=== PATIENT | female | born 1980 | race Caucasian/White ===

== ENCOUNTER 2022-12-04 16:20 | Outpatient (AMB) | payer OTHER, SELFPAY ==
[2022-12-04 16:21] VITALS: BP 112/76; PULSE 79; O2SAT 97; BMI 32.1
--- NOTE | 2022-12-04 16:21 | A.OFFPC_ITS ---
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: No Accompanied by: Self / Same As Patient Allergies No Known Allergies Allergy (Verified 12/04/22 16:58) Medication List - Last Reconciled 12/04/22 by Bry Kiran MD levothyroxine 112 mcg PO DAILY 90 days naproxen sodium (Aleve) 220 mg PO BID PRN norethindrone-e.estradiol-iron 1 mg-20 mcg ()/75 mg (7) (03/23 ()) 1 tab PO DAILY omeprazole 20 mg PO DAILY Tobacco use date assessed: 12/04/22 Dental Screening Dental Screen Date: 12/04/22 Did you have a dental visit in the last 12 months?: Yes Did you have a dental problem in the last 6 months where you did not have access to dental care?: No Was dental information given to patient?: Patient has dentist HPI PE HPI Details Patient comes in today for her annual physical examination States that she has been experiencing increased fatigue often lately Has also been experiencing an overall sense of achiness all over recently and is not sure what is going on Is thinking about getting tested for Lyme disease since we live in an area endemic for the tick-borne disease but is not sure if she needs to or she should Adds that she had COVID (again) a few weeks ago in October 2022 - relates that she was having some wheezing back then when she breathes and was feeling s omewhat tired but states that most of her symptoms then were similar to what one would have with a cold and that most of her symptoms now, aside from the fatigue, have all cleared up She also has gained a lot of weight since her visit last year - has gained approximately 21 pounds since then States that she is now in menopause and has been experiencing a lot of hot flashes frequently and has not really had any motivation to do any exercise or work outs for the past few months She denies any headaches or dizziness Denies any chest pains, no SOB No nausea/vomiting, no abdominal pain States that she was experiencing some recurrent heartburns over the past few months - was initially taking some OTC Famotidine until it stopped working States that she then switched over to OTC Prilosec and that this has been helping a lot - takes this only PRN at this time No change in bowel habits noted Denies any acute urinary symptoms Had her mammogram done back in August 2022 and 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 - both were negative Will also be needing her Levothyroxine Rx refilled if she is to continue on her same dose PFSH Medical History (Updated 12/04/22 @ 18:06 by Bry Kiran MD) Obesity (BMI 30-39.9) Vitamin D deficiency Overweight (BMI 25.0-29.9) GERD without esophagitis Multinodular goiter Acquired hypothyroidism IBS (irritable bowel syndrome) Surgical History H/O shoulder surgery History of removal of skin mole Family History Father Hypertension Mother Hypertension Diabetes Social History Housing: House Alcohol intake: current Alcohol intake frequency: a few times a week Patient Tobacco Use Status: Former Tobacco user Second Hand Smoke Exposure: Yes service: No Current occupational status: employed Cognitive needs: No Hearing needs: No Vision needs: Yes Female Reproductive History Menstrual Age of Menarche: 10 Date of last menstrual period: 07/15/21 Menopause type: natural Questionnaire PHQ-9 Over the last 2 weeks, how often have you been bothered by any of the following problems? 1. Little interest or pleasure in doing things: not at all 2. Feeling down, depressed, or hopeless: not at all 3. Trouble falling or staying asleep, or sleeping too much: not at all 4. Feeling tired or having little energy: not at all 5. Poor appetite or overeating: not at all 6. Feeling bad about yourself - or that you are a failure or have let yourself or your family down: not at all 7. Trouble concentrating on things, such as reading the newspaper or watching television: not at all 8. Moving or speaking so slowly that other people could have noticed. Or the opposite - being so fidgety or restless that you have been moving around a lot more than usual: not at all 9. Thoughts that you would be better off or of hurting yourself in some way: not at all Total score: 0 Depression Screening Interpretation: Negative Depression Screening Done: Yes 95451 - PHQ-9 Billing: Yes Source: Developed by Drs. Valerio David, Emmanuelle Shrestha, Pedro Wesley and colleagues, with an educational lubna from [employer]. Thrive Questionnaire Date Thrive assessed: 12/04/22 I am a: Patient What is your living situation today?: I have a steady place to live Within the past 12 months, did the food you bought not last and you didn't have the money to get more?: Never true Within the past 12 months, did you worry whether your food would run out before you got money to buy more?: Never true Do you have trouble paying for medicines?: No Do you have trouble getting transportation to medical appointments?: No Do you have trouble paying your heating and electricity bill?: No Do you have trouble taking care of your child, family member or friend?: No Do you have trouble with day-to-day activities such as bathing, preparing meals, shopping, managing finances, etc.?: No Are you currently unemployed and looking for a job?: No Are you interested in more education?: No Please select the resources that you would like help with: None Currently or been in a relationship where the following occur: no concerns reported AUDIT C Alcohol Use Questionnaire (AUDIT-C) 1. How often do you have a drink containing alcohol?: 2-3 times a week 2. How many drinks containing alcohol do you have on a typical day when you are drinking?: 1 or 2 3. How often do you have six or more drinks on one occasion?: Never Total Score: 3 Score Reviewed/Action Taken: Yes JERE-7 AMB Questionnaire JERE-7 Date JERE - 7 assessed: 12/04/22 Feeling nervous, anxious, or on edge: 0 = Not at all Not being able to stop or control worryin = Not at all Worrying too much about different things: 0 = Not at all Trouble relaxin = Not at all Being so restless that it is hard to sit still: 0 = Not at all Becoming easily annoyed or irritable: 0 = Not at all Feeling afraid as if something awful might happen: 0 = Not at all Total JERE-7 score (0-4 normal; 5-9 mild; 10-14 moderate; 15-21 severe): 0 Source: Developed by Drs. Valerio David, Emmanuelle Shrestha, Pedro Wesley and colleagues, with an educational lubna from [employer]. Review of Systems Const Denies chills, Reports fatigue, Denies fever(s), Denies headache(s), Reports lethargy (at times), Denies malaise and Reports weight gain Eyes Denies blurry vision, Denies change in vision, Denies irritation and Denies itchy eyes ENT Denies dysphagia, Denies dizziness, Denies otalgia, Denies headache(s), Denies nasal congestion, Denies neck pain, Denies odynophagia, Denies sinus pain and Denies sore throat Card Denies chest pain, Denies rapid heart rate, Denies irregular heart rhythm, Denies palpitations and Denies dyspnea Resp Denies chest congestion, Denies cough, Denies dyspnea and Denies wheezing GI Denies abdominal pain, Denies bloating, Denies constipation, Denies dysphagia, Denies heartburn, Denies diarrhea, Denies nausea, Denies odynophagia and Denies vomiting Denies hematuria, Denies urinary frequency, Reports hot flashes (frequent), Denies dysuria, Denies urinary incontinence and Denies urinary urgency Musc Denies back pain, Reports myalgias (on and off), Denies arthralgias, Denies joint swelling, Denies muscle weakness and Denies neck pain Skin/Breast Denies breast pain, Denies breast mass, Denies change in pigmentation, Denies lesions, Denies rash and Denies unusual bruising Neuro Denies dizziness, Denies headache(s) and Denies paresthesias Psych Denies anxiety and Denies depression Endo Reports fatigue and Denies palpitations Chucho/Lymph Denies easy bruising Aller/Immun Denies itchy eyes and Denies wheezing Physical exam (Primary Care) Vital Signs: Last Vital Signs Pulse 79 12/04/22 16:21 BP 112/76 12/04/22 16:21 Pulse Ox 97 12/04/22 16:21 Oxygen Delivery Method Room Air 12/04/22 16:21 BMI result Body Mass Index 32.1 Tobacco/Smoking Status: Tobacco use Status Tobacco use date assessed 12/04/22 12/04/22 16:26 Patient Tobacco Use Status Former Tobacco user 12/04/22 16:26 PHQ-9: PHQ-9 Score PHQ-9: Total score 0 12/04/22 16:29 Depression Screening Interpretation: Negative Thrive Assessment: Date of Thrive Assessment Date Thrive assessed 12/04/22 12/04/22 16:26 Currently or been in a relationship where the following occur: no concerns reported Const General: no acute distress, alert and awake Orientation/consciousness: patient oriented x3 HENMT Head: Yes normocephalic and Yes atraumatic Ears: external ears normal, TM's normal bilaterally and EAC's normal General nose exam: No nasal discharge present Face and sinus: Yes normal facial exam and Yes sinuses nontender Teeth and gingiva: dentition normal Throat: Yes posterior oropharynx normal and Yes tonsils normal (no TP congestion) Eyes Eyelids: Yes eyelids normal Conjunctivae: conjunctivae normal Pupils: Equal, round and reactive pupils present EOM: EOMs intact bilaterally Neck Neck: Yes no lymphadenopathy and Yes supple Thyroid: Thyroid normal Resp Auscultation: clear to auscultation bilaterally, no rales and no wheezes Cardio Rate: regular rate Rhythm: regular rhythm Heart sounds: no murmurs GI Palpation (GI): Soft to palpation, nontender and No hepatosplenomegaly present Auscultation: normal bowel sounds General: Yes no CVA tenderness Back/Spine/Pelvis Back: no CVA tenderness Thoracic/Lumbar Spine: thoracic and lumbar spine normal to inspection Skin Lesions: no lesions Rashes: no rashes Neuro General: patient oriented x3, moves all extremities, no focal motor deficits and CN's II-XI intact bilaterally Cranial nerves: Yes Equal, round and reactive pupils present Cognition (Neuro): normal cognition Gait exam (Neuro): Normal gait present Extrem General: Yes no clubbing, cyanosis or edema Office Procedures Flu Questionnaire Does the patient have a severe egg allergy?: No Immunizations flu vacc [id number] 6mos up(PF) 60 mcg(15 mcgx4)/0.5 mL IM syringe Performing Provider: Bry Kiran MD Performing Location: [facility] Documented (not given) by: Katty Jones on 12/04/22 16:29 Reason Not Given: Patient Refused Assessment and Plan Assessment & Plan (1) Annual physical exam: Code(s): Z00.00 - Encounter for general adult medical examination without abnormal findings Plan: Check labs Patient is up-to-date with her cancer screenings (pap smear and mammogram) (2) Acquired hypothyroidism: Code(s): E03.9 - Hypothyroidism, unspecified Plan: Continue Levothyroxine 112 mcg QD Will recheck her TFTs for follow up (3) Multinodular goiter: Code(s): E04.2 - Nontoxic multinodular goiter Plan: Follow up with endocrinology as scheduled Continue with yearly US for surveillance (4) GERD without esophagitis: Code(s): K21.9 - Gastro-esophageal reflux disease without esophagitis Plan: Dietary restrictions reinforced Continue OTC Omeprazole 20 mg QD PRN; used to take Famotidine but states that they were not helping as much lately so she switched over to Omeprazole instead (5) History of irritable bowel syndrome: Code(s): Z87.19 - Personal history of other diseases of the digestive system Plan: Follow up with GI as scheduled (6) Fatigue: Code(s): R53.83 - Other fatigue Qualifiers: Fatigue type: unspecified Qualified Code(s): R53.83 - Other fatigue Plan: Per request, will send her for a Lyme disease titer for further evaluation Will also recheck her CBC and TFTs, which may also potentially help explain her increased fatigue lately (7) Vitamin D deficiency: Code(s): E55.9 - Vitamin D deficiency, unspecified Plan: Advised that her Vitamin D level was low on her labs last year and she should start taking OTC Vitamin D3 2000 units QD (8) Right ankle pain: Code(s): M25.571 - Pain in right ankle and joints of right foot Qualifiers: Chronicity: unspecified Qualified Code(s): M25.571 - Pain in right ankle and joints of right foot Plan: Patient reports (+) Hx of ankle tendinosis Continue Naproxen 220 mg BID PRN Follow up with orthopedics at [facility] as scheduled or as needed (9) Obesity (BMI 30-39.9): Code(s): E66.9 - Obesity, unspecified Plan: Reinforced diet/exercise as tolerated/lose weight - she has gained over 20 pounds since her last visit a year ago Plan To return in 1 year for her next annual physical examination Orders: Orders Comprehensive Lititz. Panel Fast Today E78.00 - Pure hypercholesterolemia, unspecified, Z00.00 - Encounter for general adult medical examination without abnormal findings Lyme IgG/IgM w/reflex to WB Today R53.83 - Other fatigue, W57.XXXA - Bitten or stung by nonvenomous insect and other nonvenomous arthropods, initial encounter, Z00.00 - Encounter for general adult medical examination without abnormal findings UA CC w/rflx Micro + Cult Today R30.0 - Dysuria, Z00.00 - Encounter for general adult medical examination without abnormal findings Vitamin D 25-OH Total Today E55.9 - Vitamin D deficiency, unspecified, Z00.00 - Encounter for general adult medical examination without abnormal findings Hemoglobin A1c Today R73.01 - Impaired fasting glucose, Z00.00 - Encounter for general adult medical examination without abnormal findings Influenza [id number] Immunization Today Z23 - Encounter for immunization Complete Blood Count Auto Diff Today R53.83 - Other fatigue, Z00.00 - Encounter for general adult medical examination without abnormal findings Thyroid Stimulating Hormone Today E03.9 - Hypothyroidism, unspecified, Z00.00 - Encounter for general adult medical examination without abnormal findings Free T4 (Free Thyroxine) Today E03.9 - Hypothyroidism, unspecified, Z00.00 - Encounter for general adult medical examination without abnormal findings Lipid Panel Today E78.00 - Pure hypercholesterolemia, unspecified, Z00.00 - Encounter for general adult medical examination without abnormal findings Medications: Refilled levothyroxine 112 mcg PO DAILY 90 days 90 caps 3RF Coding Level of Care Code Est Pt Prev Care 40-64y(62376) Diagnoses Annual physical exam Z00.00 Acquired hypothyroidism E03.9 Multinodular goiter E04.2 GERD without esophagitis K21.9 History of irritable bowel syndrome Z87.19 Fatigue, unspecified type R53.83 Fatigue type: unspecified Vitamin D deficiency E55.9 Right ankle pain, unspecified chronicity M25.571 Chronicity: unspecified Obesity (BMI 30-39.9) E66.9
== END 2022-12-04 17:20 | disposition home or self-care (01) ==
PROVIDERS: PCP Internal Medicine; Visit Provider Internal Medicine
DX: Z00.00 Encounter for general adult medical examination without abnormal findings (principal); E03.9 Hypothyroidism, unspecified; E04.2 Nontoxic multinodular goiter; K21.9 Gastro-esophageal reflux disease without esophagitis; Z87.19 Personal history of other diseases of the digestive system; R53.83 Other fatigue; E55.9 Vitamin D deficiency, unspecified; M25.571 Pain in right ankle and joints of right foot; E66.9 Obesity, unspecified
CPT/HCPCS: 99396

== ENCOUNTER 2023-12-17 17:00 | Outpatient (AMB) | payer OTHER, SELFPAY ==
--- NOTE | 2023-12-17 17:06 | MHC.PC.OV ---
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: No Accompanied by: Self / Same As Patient Allergies No Known Allergies Allergy (Verified 12/17/23 19:08) Medication List - Last Reconciled 12/17/23 by Bry Kiran MD levothyroxine 112 mcg PO DAILY 90 days naproxen sodium (Aleve) 220 mg PO BID PRN norethindrone-e.estradiol-iron 1 mg-20 mcg (21)/75 mg (7) (03/23 ()) 1 tab PO DAILY omeprazole 20 mg PO DAILY Tobacco use date assessed: 12/17/23 Dental Screening Dental Screen Date: 12/17/23 Did you have a dental visit in the last 12 months?: Yes Did you have a dental problem in the last 6 months where you did not have access to dental care?: No Was dental information given to patient?: Patient has dentist HPI pe HPI Details Patient comes in today for her annual physical examination States that she feels okay She denies any headaches or dizziness Denies any chest pains, no SOB No nausea/vomiting, no abdominal pain No change in bowel habits noted Denies any acute urinary symptoms She is past due for her annual mammogram but is up-to-date with her annual gynecology exam and pap smear She is also due for her colon cancer screening She is requesting for a referral to ENT as well - states that she's had a deviated nasal septum for years and has chronic nasal congestion as a result and would now like to have this addressed [facility] Medical History Obesity (BMI 30-39.9) Vitamin D deficiency Overweight (BMI 25.0-29.9) GERD without esophagitis Multinodular goiter Acquired hypothyroidism IBS (irritable bowel syndrome) Surgical History H/O shoulder surgery History of removal of skin mole Family History Father Hypertension Mother Hypertension Diabetes Social History Housing: House Alcohol intake: current Alcohol intake frequency: a few times a week Patient Tobacco Use Status: Former Tobacco user e-Cigarette/Vaping Use: Never Used Second Hand Smoke Exposure: Yes service: No Current occupational status: employed Cognitive needs: No Hearing needs: No Vision needs: Yes Female Reproductive History Menstrual Age of Menarche: 10 Questionnaire PHQ-9 Over the last 2 weeks, how often have you been bothered by any of the following problems? 1. Little interest or pleasure in doing things: several days 2. Feeling down, depressed, or hopeless: several days 3. Trouble falling or staying asleep, or sleeping too much: more than half the days 4. Feeling tired or having little energy: more than half the days 5. Poor appetite or overeating: nearly every day 6. Feeling bad about yourself - or that you are a failure or have let yourself or your family down: not at all 7. Trouble concentrating on things, such as reading the newspaper or watching television: not at all 8. Moving or speaking so slowly that other people could have noticed. Or the opposite - being so fidgety or restless that you have been moving around a lot more than usual: not at all 9. Thoughts that you would be better off or of hurting yourself in some way: not at all Total score: 9 Depression Screening Interpretation: Positive Depression Screening Follow-up: Existing condition and Community Mental Health Worker F/U Depression Screening Done: Yes 31849 - PHQ-9 Billing: Yes Source: Developed by Drs. Valerio David, Emmanuelle Shrestha, Pedro Wesley and colleagues, with an educational lubna from [employer] by [employer]. Thrive Questionnaire Date Thrive assessed: 12/17/23 I am a: Patient What is your living situation today?: I have a steady place to live Within the past 12 months, did the food you bought not last and you didn't have the money to get more?: Never true Within the past 12 months, did you worry whether your food would run out before you got money to buy more?: Never true Do you have trouble paying for medicines?: No Do you have trouble getting transportation to medical appointments?: No Do you have trouble paying your heating and electricity bill?: No Do you have trouble taking care of your child, family member or friend?: No Do you have trouble with day-to-day activities such as bathing, preparing meals, shopping, managing finances, etc.?: No Are you currently unemployed and looking for a job?: No Are you interested in more education?: No Please select the resources that you would like help with: None Currently or been in a relationship where the following occur: No concerns reported THRIVE Score: 0 AUDIT C Alcohol Use Questionnaire (AUDIT-C) 1. How often do you have a drink containing alcohol?: 2-4 times a month 2. How many drinks containing alcohol do you have on a typical day when you are drinking?: 3 or 4 3. How often do you have six or more drinks on one occasion?: Never Total Score: 3 Score Reviewed/Action Taken: Yes JERE-7 AMB Questionnaire JEER-7 Date JERE - 7 assessed: 12/17/23 Feeling nervous, anxious, or on edge: 0 = Not at all Not being able to stop or control worryin = Not at all Worrying too much about different things: 0 = Not at all Trouble relaxin = Not at all Being so restless that it is hard to sit still: 0 = Not at all Becoming easily annoyed or irritable: 0 = Not at all Feeling afraid as if something awful might happen: 0 = Not at all Total JERE-7 score (0-4 normal; 5-9 mild; 10-14 moderate; 15-21 severe): 0 Source: Developed by Drs. Valerio David, Emmanuelle Shrestha, Pedro Wesley and colleagues, with an educational lubna from [employer] by [employer]. Review of Systems Const Denies chills, Denies fatigue, Denies fever(s), Denies headache(s), Denies malaise and Denies weakness Eyes Denies blurry vision, Denies change in vision, Denies irritation and Denies itchy eyes ENT Denies dysphagia, Denies dizziness, Denies otalgia, Denies headache(s), Reports nasal congestion (recurrent - due to nasal septum deviation), Denies neck pain, Denies odynophagia and Denies sore throat Card Denies chest pain, Denies rapid heart rate, Denies irregular heart rhythm, Denies palpitations and Denies dyspnea Resp Denies chest congestion, Denies cough, Denies dyspnea and Denies wheezing GI Denies abdominal pain, Denies bloating, Denies constipation, Denies dysphagia, Reports heartburn (at times), Denies diarrhea, Denies nausea, Denies odynophagia and Denies vomiting Denies hematuria, Denies urinary frequency, Denies dysuria and Denies urinary urgency Musc Denies back pain, Denies arthralgias, Denies joint swelling, Denies muscle weakness and Denies neck pain Skin/Breast Denies change in pigmentation, Denies lesions, Denies rash and Denies unusual bruising Neuro Denies dizziness, Denies headache(s), Denies paresthesias and Denies weakness Endo Denies fatigue and Denies palpitations Aller/Immun Denies itchy eyes and Denies wheezing Physical exam (Primary Care) Vital Signs: Last Vital Signs Pulse 90 12/17/23 17:07 BP 108/76 12/17/23 17:07 Pulse Ox 98 12/17/23 17:07 Oxygen Delivery Method Room Air 12/17/23 17:07 BMI result Body Mass Index 31.3 Tobacco/Smoking Status: Tobacco use Status Tobacco use date assessed 12/17/23 12/17/23 17:10 Patient Tobacco Use Status Former Tobacco user 12/17/23 17:10 e-Cigarette/Vaping Use Never Used 12/17/23 17:10 PHQ-9: PHQ-9 Score PHQ-9: Total score 9 12/17/23 17:38 Depression Screening Interpretation: Positive Depression Screening Follow-up: Existing condition and Community Mental Health Worker F/U Thrive Assessment: Date of Thrive Assessment Date Thrive assessed 12/17/23 12/17/23 17:10 Currently or been in a relationship where the following occur: No concerns reported Const General: no acute distress, alert and awake Orientation/consciousness: patient oriented x3 HENMT Head: Yes normocephalic and Yes atraumatic Ears: external ears normal, TM's normal bilaterally and EAC's normal General nose exam: No nasal discharge present Face and sinus: Yes normal facial exam and Yes sinuses nontender Teeth and gingiva: dentition normal Throat: Yes posterior oropharynx normal and Yes tonsils normal (no TP congestion) Eyes Eyelids: Yes eyelids normal Conjunctivae: conjunctivae normal Pupils: Equal, round and reactive pupils present EOM: EOMs intact bilaterally Neck Neck: Yes no lymphadenopathy and Yes supple Thyroid: Thyroid normal Resp Auscultation: clear to auscultation bilaterally, no rales and no wheezes Cardio Rate: regular rate Rhythm: regular rhythm Heart sounds: no murmurs GI Palpation (GI): Soft to palpation, nontender and No hepatosplenomegaly present Auscultation: normal bowel sounds General: Yes no CVA tenderness Back/Spine/Pelvis Back: no CVA tenderness Thoracic/Lumbar Spine: thoracic and lumbar spine normal to inspection Skin Lesions: no lesions Rashes: no rashes Neuro General: patient oriented x3, moves all extremities, no focal motor deficits and CN's II-XI intact bilaterally Cranial nerves: Yes Equal, round and reactive pupils present Cognition (Neuro): normal cognition Gait exam (Neuro): Normal gait present Extrem General: Yes no clubbing, cyanosis or edema Coding Level of Care Code Est Pt Prev Care 40-64y(66999) Diagnoses Annual physical exam Z00.00 Acquired hypothyroidism E03.9 Multinodular goiter E04.2 GERD without esophagitis K21.9 History of irritable bowel syndrome Z87.19 Vitamin D deficiency E55.9 Deviated nasal septum J34.2 Obesity (BMI 30-39.9) E66.9 Colon cancer screening Z12.11 Breast cancer screening by mammogram Z12.31 Assessment & Plan Assessment & Plan (1) Annual physical exam: Code(s): Z00.00 - Encounter for general adult medical examination without abnormal findings Category: Medical Plan: Check labs She is up-to-date with her annual gynecology exam and pap smear She is due for her annual mammography as well as her colon cancer screening She is currently just 3 years into menopause so it is not yet time to start her BMD screening (2) Acquired hypothyroidism: Code(s): E03.9 - Hypothyroidism, unspecified Category: Medical Plan: Continue Levothyroxine 112 mcg QD Will recheck her TFTs for follow up (3) Multinodular goiter: Code(s): E04.2 - Nontoxic multinodular goiter Category: Medical Plan: Continue with yearly US for surveillance Follow up with endocrinology as scheduled (4) GERD without esophagitis: Code(s): K21.9 - Gastro-esophageal reflux disease without esophagitis Category: Medical Plan: Dietary restrictions reinforced Continue OTC Omeprazole 20 mg QD PRN; Famotidine did not help as much (5) History of irritable bowel syndrome: Code(s): Z87.19 - Personal history of other diseases of the digestive system Category: Medical Plan: Follow up with GI as scheduled (6) Vitamin D deficiency: Code(s): E55.9 - Vitamin D deficiency, unspecified Category: Medical Plan: Continue OTC Vitamin D3 2000 units QD (7) Deviated nasal septum: Code(s): J34.2 - Deviated nasal septum Category: Medical Plan: Per request, will refer her to ENT for further evaluation and management (8) Obesity (BMI 30-39.9): Code(s): E66.9 - Obesity, unspecified Category: Medical Plan: Reinforced diet/exercise as tolerated/lose weight (9) Colon cancer screening: Code(s): Z12.11 - Encounter for screening for malignant neoplasm of colon Category: Medical Plan: Will refer her to GI for screening colonoscopy (10) Breast cancer screening by mammogram: Code(s): Z12.31 - Encounter for screening mammogram for malignant neoplasm of breast Category: Medical Plan: Will send her for her annual mammography Plan To return in 1 year for her next annual physical examination Orders: Orders Comprehensive [place]. Panel Fast Today E78.00 - Pure hypercholesterolemia, unspecified, Z00.00 - Encounter for general adult medical examination without abnormal findings Lipid Panel Today E78.00 - Pure hypercholesterolemia, unspecified, Z00.00 - Encounter for general adult medical examination without abnormal findings Vitamin D 25-OH Total Today E55.9 - Vitamin D deficiency, unspecified, Z00.00 - Encounter for general adult medical examination without abnormal findings UA CC w/rflx Micro + Cult Today R30.0 - Dysuria, Z00.00 - Encounter for general adult medical examination without abnormal findings Thyroid Stimulating Hormone Today E03.9 - Hypothyroidism, unspecified, Z00.00 - Encounter for general adult medical examination without abnormal findings MM tomosynthesis screening BI Today Z12.31 - Encounter for screening mammogram for malignant neoplasm of breast Complete Blood Count Auto Diff Today D64.9 - Anemia, unspecified, Z00.00 - Encounter for general adult medical examination without abnormal findings Free T4 (Free Thyroxine) Today E03.9 - Hypothyroidism, unspecified, Z00.00 - Encounter for general adult medical examination without abnormal findings Hemoglobin A1c Today R73.01 - Impaired fasting glucose, Z00.00 - Encounter for general adult medical examination without abnormal findings Referrals Gastroenterology Referral Z12.11 - Encounter for screening for malignant neoplasm of colon Ear/Nose/Throat Referral J34.2 - Deviated nasal septum
[2023-12-17 17:07] VITALS: BP 108/76; PULSE 90; O2SAT 98; BMI 31.3
== END 2023-12-17 17:48 | disposition home or self-care (01) ==
PROVIDERS: PCP Internal Medicine; Visit Provider Internal Medicine
DX: Z00.00 Encounter for general adult medical examination without abnormal findings (principal); E03.9 Hypothyroidism, unspecified; E66.9 Obesity, unspecified; Z68.31 Body mass index [BMI] 31.0-31.9, adult; E04.2 Nontoxic multinodular goiter; K21.9 Gastro-esophageal reflux disease without esophagitis; Z87.19 Personal history of other diseases of the digestive system; E55.9 Vitamin D deficiency, unspecified; J34.2 Deviated nasal septum; Z12.11 Encounter for screening for malignant neoplasm of colon; Z12.31 Encounter for screening mammogram for malignant neoplasm of breast

== ENCOUNTER → 2023-12-17 17:00 | Outpatient (BNVA) | payer OTHER, SELFPAY | PROVIDERS: PCP Internal Medicine; Visit Provider Internal Medicine ==

== ENCOUNTER 2025-01-20 15:49 | Outpatient (AMB) | payer OTHER, SELFPAY ==
[2025-01-20 15:51] VITALS: BP 100/72; PULSE 84; O2SAT 96; BMI 26.9
--- NOTE | 2025-01-20 15:51 | A.OFFPC_ITS ---
Vital Signs 01/20/25 15:51 Height 5 ft 8 in Weight 177 lb BMI 26.9 BP 100/72 Blood Pressure Location Lt brachial Position Sitting Pulse 84 Pulse Source Pulse Oximeter Pulse Oximetry (%) 96 Oxygen Delivery Method Room Air Intake Visit Reasons: Annual exam Energy Risk Management Analyst Required: No Accompanied by: Self / Same As Patient Allergies No Known Allergies Allergy (Verified 01/20/25 16:06) Medication List - Last Reconciled 01/20/25 by Bry Kiran MD levothyroxine 112 mcg PO DAILY 90 days naproxen sodium (Aleve) 220 mg PO BID PRN norethindrone-e.estradiol-iron 1 mg-20 mcg ()/75 mg () (03/23 ()) 1 tab PO DAILY omeprazole 20 mg PO DAILY semaglutide (weight loss) (Wegovy) 1.7 mg subcut QWEEK Tobacco use date assessed: 01/20/25 Dental Screening Dental Screen Date: 01/20/25 Did you have a dental visit in the last 12 months?: Yes Did you have a dental problem in the last 6 months where you did not have access to dental care?: No Was dental information given to patient?: Patient has dentist HPI Annual exam HPI Details Patient comes in today for her annual physical examination States that she feels okay She denies any headaches or dizziness Denies any chest pains, no SOB No nausea/vomiting, no abdominal pain No change in bowel habits noted Denies any acute urinary symptoms States that she is still waiting for GI to schedule her for her screening colonoscopy She had her annual mammogram done in 09/2024 She is past due for her yearly gynecology exam and Pap smear is requesting for a new referral to a 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 [facility] 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 She has been on on Wegovy since June 2024 for weight loss but states that her insurance will no longer cover her Rx starting March 2025 [facility] Medical History Obesity (BMI 30-39.9) Vitamin D deficiency Overweight (BMI 25.0-29.9) GERD without esophagitis Multinodular goiter Acquired hypothyroidism IBS (irritable bowel syndrome) Surgical History H/O shoulder surgery History of removal of skin mole Family History Father Hypertension Mother Hypertension Diabetes Social History Housing: House Alcohol intake: current Alcohol intake frequency: a few times a week Patient Tobacco Use Status: Former Tobacco user e-Cigarette/Vaping Use: Never Used Second Hand Smoke Exposure: Yes service: No Current occupational status: employed Cognitive needs: No Hearing needs: No Vision needs: Yes Female Reproductive History Menstrual Age of Menarche: 10 Questionnaire PHQ-9 Over the last 2 weeks, how often have you been bothered by any of the following problems? 1. Little interest or pleasure in doing things: not at all 2. Feeling down, depressed, or hopeless: several days 3. Trouble falling or staying asleep, or sleeping too much: several days 4. Feeling tired or having little energy: several days 5. Poor appetite or overeating: not at all 6. Feeling bad about yourself - or that you are a failure or have let yourself or your family down: several days 7. Trouble concentrating on things, such as reading the newspaper or watching television: not at all 8. Moving or speaking so slowly that other people could have noticed. Or the opposite - being so fidgety or restless that you have been moving around a lot more than usual: not at all 9. Thoughts that you would be better off or of hurting yourself in some way: not at all Total score: 4 Depression Screening Interpretation: Positive Depression Screening Follow-up: Follow-up Visit Requested Depression Screening Done: Yes 67920 - PHQ-9 Billing: Yes Source: Developed by Drs. Valerio David, Emmanuelle Shrestha, Pedro Wesley and colleagues, with an educational lubna from [employer]. Thrive Questionnaire Date Thrive assessed: 01/20/25 I am a: Patient What is your living situation today?: I have a steady place to live Within the past 12 months, did the food you bought not last and you didn't have the money to get more?: Never true Within the past 12 months, did you worry whether your food would run out before you got money to buy more?: Never true Do you have trouble paying for medicines?: No Do you have trouble getting transportation to medical appointments?: No Do you have trouble paying your heating and electricity bill?: No Do you have trouble taking care of your child, family member or friend?: No Do you have trouble with day-to-day activities such as bathing, preparing meals, shopping, managing finances, etc.?: No Are you currently unemployed and looking for a job?: No Are you interested in more education?: No Please select the resources that you would like help with: None Currently or been in a relationship where the following occur: No concerns reported THRIVE Score: 0 AUDIT C Alcohol Use Questionnaire (AUDIT-C) 1. How often do you have a drink containing alcohol?: 2-3 times a week 2. How many drinks containing alcohol do you have on a typical day when you are drinking?: 3 or 4 3. How often do you have six or more drinks on one occasion?: Never Total Score: 4 Score Reviewed/Action Taken: Yes JERE-7 AMB Questionnaire JERE-7 Date JERE - 7 assessed: 01/20/25 Feeling nervous, anxious, or on edge: 1 = Several days Not being able to stop or control worryin = Several days Worrying too much about different things: 0 = Not at all Trouble relaxin = Not at all Being so restless that it is hard to sit still: 0 = Not at all Becoming easily annoyed or irritable: 0 = Not at all Feeling afraid as if something awful might happen: 0 = Not at all Total JERE-7 score (0-4 normal; 5-9 mild; 10-14 moderate; 15-21 severe): 2 Source: Developed by Drs. Valerio David, Emmanuelle Shrestha, Pedro Wesley and colleagues, with an educational lubna from [employer]. Review of Systems Const Denies chills, Denies fatigue, Denies fever(s), Denies headache(s) and Denies malaise Eyes Denies blurry vision, Denies change in vision, Denies irritation and Denies itchy eyes ENT Denies dysphagia, Denies dizziness, Denies otalgia, Denies headache(s), Denies nasal congestion, Denies neck pain, Denies odynophagia, Denies sinus pain and Denies sore throat Card Denies chest pain, Denies rapid heart rate, Denies irregular heart rhythm, Denies palpitations and Denies dyspnea Resp Denies chest congestion, Denies cough, Denies dyspnea and Denies wheezing GI Denies abdominal pain, Denies bloating, Denies constipation, Denies dysphagia, Denies heartburn, Denies diarrhea, Denies nausea, Denies odynophagia and Denies vomiting Denies hematuria, Denies urinary frequency, Denies dysuria, Denies urinary incontinence and Denies urinary urgency Musc Denies back pain, Denies arthralgias, Denies joint swelling, Denies muscle weakness and Denies neck pain Skin/Breast Denies breast pain, Denies breast mass, Denies change in pigmentation, Denies lesions, Denies rash and Denies unusual bruising Neuro Denies dizziness, Denies headache(s) and Denies paresthesias Psych Denies anxiety and Denies depression Endo Denies fatigue and Denies palpitations Chucho/Lymph Denies easy bruising Aller/Immun Denies itchy eyes and Denies wheezing Physical exam (Primary Care) Vital Signs: Last Vital Signs Pulse 84 01/20/25 15:51 BP 100/72 01/20/25 15:51 Pulse Ox 96 01/20/25 15:51 Oxygen Delivery Method Room Air 01/20/25 15:51 BMI result Body Mass Index 26.9 Tobacco/Smoking Status: Tobacco use Status Tobacco use date assessed 01/20/25 01/20/25 15:59 Patient Tobacco Use Status Former Tobacco user 01/20/25 15:59 e-Cigarette/Vaping Use Never Used 01/20/25 15:59 PHQ-9: PHQ-9 Score PHQ-9: Total score 4 01/20/25 16:20 Depression Screening Interpretation: Positive Depression Screening Follow-up: Follow-up Visit Requested Thrive Assessment: Date of Thrive Assessment Date Thrive assessed 01/20/25 01/20/25 15:59 Currently or been in a relationship where the following occur: No concerns reported Const General: no acute distress, alert and awake Orientation/consciousness: patient oriented x3 HENMT Head: Yes normocephalic and Yes atraumatic Ears: external ears normal, TM's normal bilaterally and EAC's normal General nose exam: No nasal discharge present Face and sinus: Yes normal facial exam and Yes sinuses nontender Teeth and gingiva: dentition normal Throat: Yes posterior oropharynx normal and Yes tonsils normal (no TP congestion) Eyes Eyelids: Yes eyelids normal Conjunctivae: conjunctivae normal Pupils: Equal, round and reactive pupils present EOM: EOMs intact bilaterally Neck Neck: Yes no lymphadenopathy and Yes supple Thyroid: Thyroid normal Resp Auscultation: clear to auscultation bilaterally, no rales and no wheezes Cardio Rate: regular rate Rhythm: regular rhythm Heart sounds: no murmurs GI Palpation (GI): Soft to palpation, nontender and No hepatosplenomegaly present Auscultation: normal bowel sounds General: Yes no CVA tenderness Back/Spine/Pelvis Back: no CVA tenderness Thoracic/Lumbar Spine: thoracic and lumbar spine normal to inspection Skin Lesions: no lesions Rashes: no rashes Neuro General: patient oriented x3, moves all extremities, no focal motor deficits and CN's II-XI intact bilaterally Cranial nerves: Yes Equal, round and reactive pupils present Cognition (Neuro): normal cognition Gait exam (Neuro): Normal gait present Extrem General: Yes no clubbing, cyanosis or edema Coding Level of Care Code Est Pt Prev Care 40-64y(13005) Diagnoses Annual physical exam Z00.00 Acquired hypothyroidism E03.9 Multinodular goiter E04.2 GERD without esophagitis K21.9 History of irritable bowel syndrome Z87.19 Vitamin D deficiency E55.9 Deviated nasal septum J34.2 Obesity (BMI 30-39.9) E66.9 Cervical cancer screening Z12.4 Additional Codes PHQ-9 - 06485 - PHQ-9 Billing: Yes ([id number]) Assessment & Plan Assessment & Plan (1) Annual physical exam: Code(s): Z00.00 - Encounter for general adult medical examination without abnormal find ings Category: Medical Plan: Check labs BEN to complete her annual exam today States that she is still waiting for GI to schedule her for her screening colonoscopy She had her annual mammogram done in 09/2024 She is past due for her yearly gynecology exam and Pap smear is requesting for a new referral to a 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 [facility] 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 (2) Acquired hypothyroidism: Code(s): E03.9 - Hypothyroidism, unspecified Category: Medical Plan: Continue Levothyroxine 112 mcg QD Will recheck her TFTs for follow up (3) Multinodular goiter: Code(s): E04.2 - Nontoxic multinodular goiter Category: Medical Plan: Continue with yearly US for surveillance Follow up with endocrinology as scheduled (4) GERD without esophagitis: Code(s): K21.9 - Gastro-esophageal reflux disease without esophagitis Category: Medical Plan: Dietary restrictions reinforced Continue OTC Omeprazole 20 mg QD PRN; states that Famotidine did not help her as much with her symptoms (5) History of irritable bowel syndrome: Code(s): Z87.19 - Personal history of other diseases of the digestive system Category: Medical Plan: Follow up with GI as scheduled (6) Vitamin D deficiency: Code(s): E55.9 - Vitamin D deficiency, unspecified Category: Medical Plan: Continue OTC Vitamin D3 2000 units QD Will recheck her Vitamin D level for follow-up (7) Deviated nasal septum: Code(s): J34.2 - Deviated nasal septum Category: Medical Plan: Follow-up with ENT as scheduled (8) Obesity (BMI 30-39.9): Code(s): E66.9 - Obesity, unspecified Category: Medical Plan: Reinforced diet/exercise as tolerated/lose weight She has been on Wegovy since last year and has lost almost 30 lbs while on the medication but states that she was informed by her health insurance company recently that they will no longer cover her prescription starting March of next year (2025) (9) Cervical cancer screening: Code(s): Z12.4 - Encounter for screening for malignant neoplasm of cervix Category: Medical Plan: 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 she is requesting for a referral to another 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 at [facility] - referral placed Plan To return in 1 year for her next annual physical examination Orders: Orders Lipid Panel 01/20/25 E78.00 - Pure hypercholesterolemia, unspecified, Z00.00 - Encounter for general adult medical examination without abnormal findings UA CC w/rflx Micro + Cult 01/20/25 R30.0 - Dysuria, Z00.00 - Encounter for general adult medical examination without abnormal findings Lyme IgG/IgM w/reflex to WB 01/20/25 W57.XXXA - Bitten or stung by nonvenomous insect and other nonvenomous arthropods, initial encounter Complete Blood Count Auto Diff 01/20/25 D64.9 - Anemia, unspecified, Z00.00 - Encounter for general adult medical examination without abnormal findings Comprehensive [place]. Panel Fast 01/20/25 E78.00 - Pure hypercholesterolemia, unspecified, Z00.00 - Encounter for general adult medical examination without abnormal findings Vitamin D 25-OH Total 01/20/25 E55.9 - Vitamin D deficiency, unspecified, Z00.00 - Encounter for general adult medical examination without abnormal findings Thyroid Stimulating Hormone 01/20/25 E03.9 - Hypothyroidism, unspecified, Z00.00 - Encounter for general adult medical examination without abnormal findings Free T4 (Free Thyroxine) 01/20/25 E03.9 - Hypothyroidism, unspecified, Z00.00 - Encounter for general adult medical examination without abnormal findings Hemoglobin A1c 01/20/25 R73.01 - Impaired fasting glucose Referrals SUPERVISOR ENGINE REPAIR Referral Z12.4 - Encounter for screening for malignant neoplasm of cervix
--- OUTSIDE RECORDS SUMMARY | 2025-01-21 04:26 | XMS_ITS | Continuity of Care Document ---
Author Organization [place] - [facility], [facility] Address [address] [place] [address] Care Team Providers Care Customer Service Coordinator Name Role Phone RIVER KARIMI Primary Care Provider [phone] Assessment Encounter Date Assessment Date Assessment LastModified by Organization Details LastModified Time 12/15/2024 12/15/2024 44 year old female, s/p septoplasty with turbinate reduction performed 12/08/[address] De Luna, presents for her first postoperative evaluation. Surgical pathology is benign. Patient is doing well following surgery. Zaldivar splints were removed without difficulty. Septum and nasal cavities appear to be healing well on rigid endoscopy. Patient may continue saline irrigation to help promote healing. Patient should avoid heavy lifting and strenuous physical activity for 1-2 weeks after surgery to reduce the risk of bleeding. Also recommend refraining from nose blowing and minimizing activities that increase intranasal pressure, such as forceful sneezing, swimming, or diving, during the early postoperative period to prevent complications. Patient can return to school or work with light duties after a week. Otherwise, follow up with Dr. De Luna as originally scheduled. All questions were answered. [email or web address] Not available 12/15/2024 21:46:30 Plan of Treatment Reminders Order Date Submit Date Provider Last Modified By Organization Details Last Modified Time Details Appointments None record ed. Lab None record ed. Referral None record ed. Procedures None record ed. Surgeries None record ed. Imaging None record ed. Medication Orders None record ed. Patient TargetsNo targets recorded. Patient InstructionsNo instructions recorded. Reason for Referral None Reported. Results Created Date Observation Date Name Description Value Unit Range Abnormal Flag Note LastModifiedBy Organization Detail LastModifiedTime Result Notes None recorded. Problems Name Problem SNOMED Code Status Onset Date Resolution Date Notes Provider Name and Address Organization Details Recorded Time Deviated nasal septum 361094765 Active 2024 SRINIVASAN DE LUNA MD [address] [address], [place], [phone], [facility] 14:33:48 Hypertrophy of nasal turbinates 15122581 Active 2024 SRNIIVASAN DE LUNA MD [address] [place] [address], [phone], [facility] 11:53:18 Problem Notes None recorded. Procedures Surgical History Date Name Laterality Status Provider Name and Address Organization Details Recorded Time NasalEndoscopy_ DP completed MARCO ANTONIO MAKI [address] [place] [address],[address], [phone], [facility] 12/15/2024 21:39:31 SEPTOPLASTY AND TURBINATE REDUCTION (SURG) completed Ethan Alston [facility] 12/11/2024 08:31:36 nasal septoplasty completed SRINIVASAN DE LUNA MD [address] [place] [address], [phone], [facility] 12/08/2024 13:55:14 Imaging Results None recorded. Procedure Notes None recorded. Medical Equipment None Reported. Allergies No known drug allergies Medications Name Sig Start Date Stop Date Status Note LastModified by Organization Details LastModified Time ibuprofen 800 mg tablet 1 TABLET EVERY 8 HOURS NEEDED FOR PAIN 08/03 completed Not Available Not Available Not Available amoxicillin 500 mg tablet Take 1 tablet every 8 hours by oral route for 7 days. 12/22 completed Not Available Not Available Not Available omeprazole 20 mg capsule,del ayed release Take 1 capsule every day by oral route. active Not Available Not Available No t Available fluticasone propionate 50 mcg/actuati on nasal spray,suspe nsion SPRAY 2 SPRAYS EVERY DAY BY INTRANASA L ROUTE FOR 90 DAYS. active Not Available Not Available No t Available levothyroxi ne 112 mcg tablet TAKE 1 TABLET BY MOUTH EVERY DAY active Not Available Not Available No t Available oxycodone 5 mg tablet Take 1 tablet every 8 hours by oral route as needed for 4 days, for breakthro ugh pain. 12/19 completed Not Available Not Available Not Available 03/23 (28) 1 mg-20 mcg (21)/75 mg (7) tablet TAKE 1 TABLET BY MOUTH EVERY DAY active Not Available Not Available No t Available Wegovy 1 mg/0.5 mL subcutaneou s pen injector INJECT 1 MG SUBCUTANE OUSLY EVERY WEEK FOR WEIGHT LOSS. active Not Available Not Available No t Available Wegovy 0.25 mg/0.5 mL subcutaneou s pen injector PLEASE SEE ATTACHED FOR DETAILED DIRECTION S 10/09 completed Not Available Not Available Not Available Wegovy 0.5 mg/0.5 mL subcutaneou s pen injector INJECT 0.5 MG SUBCUTANE OUSLY EVERY WEEK FOR WEIGHT LOSS 01/08 completed Not Available Not Available Not Available Opzelura 1.5 % topical cream APPLY TO AFFECTED AREA ON CHEST TWICE A DAY NEEDED FOR FLARES active Not Available Not Available No t Available Vitals Date Recorded Body height Body mass index (BMI) Body weight Provider Name and Address Organization Details Last Updated DateTime 12/15/2024 172.72 cm 30.4 kg/m2 37453.47 g Jessica Allison [place] - [facility] 12/15/2024 14:25:34 Social History Question Answer Notes LastModified by Organizat ion Details LastModified Time Tobacco Smoking Status Former Smoker SRINIVASAN DE LUNA MD [address] [place] [address], [phone] [place] - [facility] 08/03/2024 14:25:24 How Many Years Have You Consumed Alcohol? 20 [email or web address] Information not available 12/15/2024 What Type Of Information Technology Technician Do You Use? None [email or web address] Information not available 12/15/2024 How Many Alcoholic Drinks Do You Consume Per Day On Average? 0 [email or web address] Information not available 12/15/2024 When Did You Quit Smoking? 16+yearssinc [email or web address] te Information not available 12/15/2024 Do You Have Any Pets? Yes Information not available 12/15/2024 At What Age Did You Start Smoking Tobacco? 12 [email or web address] Information not available 12/15/2024 Are You Passively Exposed To Smoke? No [email or web address] Information not available 12/15/2024 Are There Any Smokers In Your House? No [email or web address] Information not available 12/15/2024 How Much Tobacco Do You Smoke? 1 PPD Information not available 12/15/2024 How Many Years Have You Smoked Tobacco? 14 [email or web address] Information not available 12/15/2024 Sex: Unknown Functional Status Question Answer Note LastModified by Organizat ion Details LastModified Time Do you use any illicit or recreational drugs? No [email or web address] Information not available 12/15/2024 Do you or have you ever used any other forms of tobacco or nicotine? No [email or web address] Information not available 12/15/2024 What is your level of alcohol consumption? Occasional [email or web address] Information not available 12/15/2024 Mental Status None recorded. Family History Nothing Reported. Medical History Condition Response Allergies/Hayfever Y Heart Problems N Anxiety N Tonsil Infections N Emphysema N Migraines N Thyroid Problems Y Depression N COPD N Developmental Delay N Glaucoma N Nasal or Sinus Problems Y Anemia N Immune System Disorder Y Anesthesia Complications Y Heart Attack (CT) N Other Skin Condition Y Diabetes N Rhinitis Y Bleeding Disorder N Food Allergy N Hearing Loss N Arthritis N Hyperlipidemia N Cancer N Stroke N Dementia N Nasal polyps N Asthma N Sleep Disorder N High Cholesterol N GERD/Reflux Y Liver Disease N Headaches N Fibromyalgia N Hypertension N Speech Delay N Kidney Disease N Gynecological HistoryNo gynecological history recorded. Obstetrics History GPAL:G 0 P 0 0 0 0 Past Encounters Encounter ID Performer Location Encounter Start Date Encounter Closed Date Diagnosis/Indication Diagnosis SNOMED-CT Code Diagnosis ICD10 Code Diagnosis IMO Codes Diagnosis Note [id number] MARCO ANTONIO MAKI [facility] [address] [phone] 12/15/2024 14:08:24 12/15/2024 14:42:16 Deviated nasal septum 427060893 J34.2 034751 Hypertroph y of nasal turbinates 89191676 J34.3 011552 Health Concerns Section Related Observation LastModified by Organization Detai ls LastModified Time None Recorded Concern Status LastModified by Organization Details LastModified Time None Recorded Payers Encounter Date Sequence Insurance Name Policy Number Policy Meier Covered Member ID Meier Member ID Guarantor Name 12/15/2024 1 [facility] [id number] 3 Shahnaz Riggs [id number] Shahnaz Riggs Notes Date Note Type Note Provider Name and Address Organization Details Recorded Time 12/15/2024 text/html ROS as noted in the HPI 44 year old female, s/p septoplasty with turbinate reduction performed 12/08/[address] De Luna, presents for her first postoperative evaluation. Patient is doing well overall. She did endorse mild blood-tinged mucus draining from both nostrils the first few days after surgery. Patient has been using a saline spray as recommended with good relief. Denies fever, vision changes, and facial pressure. Sense of smell is intact. MIGUEL ZAMARRIPA MD [address] [place] [address], [phone], [facility] - [facility] 12/16/2024 12:43:27 OBGyn Episode No OBEpisode recorded.
--- OUTSIDE RECORDS SUMMARY | 2025-01-21 04:26 | XMS_ITS | Continuity of Care Document ---
Author Organization [facility] Address [address] [place] [id number] Problems Condition ICD9 code ICD10 code SNOMED code Start Date End Date S tatus Encounter for screening for other metabolic disorders Z13.228 Results No Results Allergies, adverse reactions, alerts No known allergies and adverse reactions Medications No administered medications reported Vital Signs No vital signs reported Social History No smoking Hx information available
--- OUTSIDE RECORDS SUMMARY | 2025-01-21 04:26 | XMS_ITS | Continuity of Care Document ---
Author Organization [place] - [facility], [facility] Address [address] [place] [address] Care Team Providers Care Editor Newspaper Name Role Phone RIVER KARIMI Primary Care Provider Assessment No assessment recorded. Plan of Treatment Reminders Order Date Submit [...] Organization Details Recorded Time Deviated nasal septum 707880046 Active 2024 SRNIIVASAN DE LUNA MD [address] [place] [address], [phone], [facility] - [facility] 5 14:33:48 Hypertrophy of nasal turbinates 72802263 Active 2024 SRINIVASAN DE LUNA MD [address] [place] [address], [phone], [facility] - [facility] 11:53:18 Problem Notes None recorded. Procedures Surgical History Date Name Laterality Status Provider Name and Address Organization Details Recorded Time NasalEndoscopy_ DP completed MARCO ANTONIO MAKI [address] [place] [address], [phone], [facility] - [facility] 12/15/2024 21:39:31 SEPTOPLASTY AND TURBINATE REDUCTION (SURG) completed Ethan Alston [place] - [facility] 12/11/2024 08:31:36 nasal septoplasty completed SRINIVASAN DE LUNA MD [address] [place] [address], [place], [address], [place] - [facility] 12/08/2024 13:55:14 Imaging Results None recorded. Procedure [...] and Address Organization Details Last Updated DateTime 01/08/2025 173.99 cm 26.5 kg/m2 76168.85 g Naomi Griffin [place] - [facility] 01/08/2025 15:16:01 Social History Question Answer Notes LastModified by Organizat ion Details LastModified Time Tobacco Smoking Status Former Smoker SRINIVASAN DE LUNA MD [address] [place] [address], [phone], [facility] - [facility] 08/03/2024 14:25:24 How Many Years Have You Consumed Alcohol? 20 Information not available 12/15/2024 What Type Of Literacy Specialist Do You Use? None [email or web address] Information not available 12/15/2024 How Many Alcoholic Drinks Do You Consume Per Day On Average? 0 [email or web address] Information not available 12/15/2024 When Did You Quit Smoking? 16+yearssinc elastcigaret te [email or web address] Information not available 12/15/2024 Do You Have Any Pets? Yes [email or web address] Information not available 12/15/2024 At What Age Did You Start Smoking Tobacco? 12 [email or web address] Information not available 12/15/2024 Are You Passively Exposed To Smoke? No Information not available 12/15/2024 Are There Any Smokers In Your House? No Information not available 12/15/2024 How Much Tobacco Do You Smoke? 1 PPD Information not available 12/15/2024 How Many Years Have You Smoked Tobacco? 14 [email or web address] Information not available 12/15/2024 Sex: Unknown Functional Status Question Answer Note LastModified by Organizat ion Details LastModified Time Do you use any illicit or recreational drugs? No [email or web address] Information not available 12/15/2024 Do you or have you ever used any other forms of tobacco or nicotine? No [email or web address] Information not available 12/15/2024 What is your level of alcohol consumption? Occasional [email or web address] Information not available 12/15/2024 Mental Status None recorded. Family History Nothing Reported. Medical History Condition Response Allergies/Hayfever Y Heart Problems N Anxiety N Tonsil Infections N Emphysema N Migraines N Thyroid Problems Y COPD N Depression N Developmental Delay N Glaucoma N Nasal or Sinus Problems Y Anemia N Immune System Disorder Y Anesthesia Complications Y Heart Attack (NC) N Other Skin Condition Y Diabetes N [...] ICD10 Code Diagnosis IMO Codes Diagnosis Note [id number] MARCO ANTONIO MAKI [facility] of [address] [address] 12/15/2024 14:08:24 12/15/2024 14:42:16 Deviated nasal septum 663985861 J34.2 705478 Hypertroph y of nasal turbinates 70334772 J34.3 [id number] SRINIVASAN DE LUNA MD [facility] of [address] [address] 01/08/2025 15:12:39 01/11/2025 16:29:52 Deviated nasal septum 678389362 J34.2 [id number] She is healing well. There is residual caudal deviation but overall marked airflow improvemen t. Continue saline and flonase for allergies. Follow up as needed. Health Concerns Section Related Observation LastModified by Organization Detai ls LastModified Time None Recorded Concern Status LastModified by Organization Details LastModified Time None Recorded Payers Encounter Date Sequence Insurance Name Policy Number Policy Meier Covered Member ID Meier Member ID Guarantor Name 01/08/2025 1 [facility] [id number] Shahnaz Rgigs [id number] Shahnaz Riggs Notes Date Note Type Note Provider Name and Address Organization Details Recorded Time 01/08/2025 text/html ROS as noted in the HPI 44 year old female, presents for follow up. Has been using flonase for allergies. Improved nasal airflow but still feels a little narrow anteriorly. SRINIVASAN DE LUNA MD [address] [place] [address], [place], [address], [place] - [facility] 01/08/2025 16:46:09 OBGyn Episode No OBEpisode recorded.
--- OUTSIDE RECORDS SUMMARY | 2025-01-21 04:26 | XMS_ITS | Data Portability ---
Author Organization MARCO ANTONIO [facility], [address] Address [address] [place] [address] Assessment No assessment recorded. Plan of Treatment Reminders Order Date Submit Date Provider Last Modified By Organization Details Last Modified Time Details Appointments None recorded. Lab rapid strep group A, throat 2023 024 [facility] [address] [place], [address], 4 08:35:14 streptococc us group A, culture, throat 2023 024 [place] [facility] ([facility], [facility] [place], [address], 4 10:05:41 rapid strep group A, throat 2022 023 [facility] [address] [place], [address], 3 10:36:15 streptococc us group A, culture, throat 2022 023 [place] [facility] ([facility], [address] [place] [address], [address], 4 12:05:45 Referral None recorded. Procedures None recorded. Surgeries None recorded. Imaging None recorded. Medication Orders polymyxin B sulfate 10,000 unit-trimet hoprim 1 mg/mL eye drops 2023 024 [place] [id number], [address] [place], [address], 08:25:37 amoxicillin 500 mg capsule 2022 024 [id number], [address] [place], [address], 08:20:50 Patient TargetsNo targets recorded. Patient Instructions Encounter Date Encounter Id Patient Instructions Last Modified By Organization Details Last Modified Time 03/01/2023 [id number] sore throat: car e instructions [email or web address] Not available 03/01/2023 10:36:13 Based on your Presentation, Exam, and Lab Testing you are being diagnosed with Pharyngitis. Your Rapid Strep Test was Negative. Most likely your sore throat is being caused by a virus, post nasal drip, or silent acid reflux. I am going to send a Throat Culture to the lab for you to make sure you don't have a different form of strep in your throat. This will take about 72 hours for that result to return. We will contact you if it positive - if for some reason you don't get a copy of your results or hear from us - please contact our office. The following are my other recommendations to help with symptoms and is important for this diagnosis: 1. Do not share any food or drinks - strep is passed through direct saliva exchange (NOT IN THE AIR) 2. Take Ibuprofen or Tylenol if you do not have any allergies to these medications. If you take a blood thinner you should not take NSAIDS like Ibuprofen. These medication will help with the inflammation in your respiratory tract which should help the cough. (I would alternate between Tylenol 650 mg and your Ibuprofen 600 mg every 4 hours) 3. Do not take any Cold Medications that have a Decongestant in it - this will dry out your throat and make the sore throat worse. 4. Drinking Hot Tea with honey can help coat and soothe your throat. 5. You would be considered contagious for the next 24-48 hours, or until fever resolves. I would be seen again if you develop any of the following symptoms. 1. Fever > 101.0 2. Stiff neck - where you can't turn your neck 3. Trouble swallowing your saliva - drooling 4. Swelling of a lymph node in your throat that is painful to touch 5. Difficulty breathing 6. Severe Headache Thank you for using [facility] today, please feel free to contact our office if you have any questions or concerns. Not available 03/01/2023 10:35:54 07/26/2023 [id number] sore throat: car e instructions [email or web address] Not available 07/26/2023 08:26:10 seasonal allergi es: care instructions [email or web address] Not available 07/26/2023 08:26:10 pinkeye: care instructions [email or web address] Not available 07/26/2023 08:25:35 Allergic Conjunctivitis: Care Instructions [email or web address] Not available 07/26/2023 08:25:35 Your exam is consistent with an allergic conjunctivitis but a bacterial infection cannot be entirely ruled out. Use the eye drops as prescribed. Continue using the allergy eye drops that you have at home. Continue taking the Kate that you have at home. See printed instructions. Cool compresses to the eye may help improve the swelling. You will be contacted when your throat culture report returns. Drink plenty of fluids. Gargle with warm salty water several times daily. Follow-up with your doctor if no improvement in a few days. Seek Emergency Medical evaluation for any worsening symptoms, particularly for high fever, shaking chills, rash, severe headache, stiff neck, worsening eye pain, blurry vision, trouble swallowing or breathing. Not available 07/26/2023 08:29:57 Reason for Referral None Reported. Results Created Date Observation Date Name Description Value Unit Range Abnormal Flag Note LastModifiedBy Organization Detail LastModifiedTime 03/01/2003/04/2023 BETA STREP GP A CULTU RE beta strep gp A culture NEGATI VE Refer ence Range : Negat berhane Not Available [facility] ([facility]) [address] [facility], [place], [address], 03/04/2023 12:05:45 03/01/2003/01/2023 rapid strep group A, throa t Unknown Analyte negati ve Not Available [address] [facility], [place], [address], 03/01/2023 09:49:12 03/01/20 23 03/01/2023 rapid strep group A, throa t Unknown Analyte negati ve Not Available [address] [place], [address], 03/01/2023 09:49:12 03/01/20 23 03/01/2023 rapid strep group A, throa t Unknown Analyte Yes Not Available [facility] [address] [place], [address], 03/01/2023 09:49:12 07/26/19 24 07/30/2023 BETA STREP GP A CULTU RE beta strep gp A culture NEGATI VE Refer ence Range : Negat berhane Not Available [facility] ([facility]) [address] [facility], [place], [address], 07/30/2023 10:05:41 07/26/19 24 07/26/2023 rapid strep group A, throa t Unknown Analyte negati ve Not Available [id number] [place] [address] [address] [place], [address], 07/26/2023 08:24:48 07/26/19 24 07/26/2023 rapid strep group A, throa t Unknown Analyte yes Not Available [id number] [place] [address] [address] [place], [address], 07/26/2023 08:24:48 Result Notes None recorded. Problems Name Problem SNOMED Code Status Onset Date Resolution Date Notes Provider Name and Address Organization Details Recorded Time Acid reflux 998430891 Active Lonaefrain newell, [place] - [facility] 4 08:21:08 Eczema 83548817 Active 2022 Julieta newell, [place] - [facility] 3 09:47:06 Hypothyroidism 54586708 Active 2022 Julieta newell, [place] - [facility] 3 09:47:22 Sore throat 875925245 Active 2022 MARCO ANTONIO Newman [facility] 3 09:49:13 Problem Notes None recorded. Procedures Surgical History Date Name Laterality Status Provider Name and Address Organization Details Recorded Time Shoulder joint surgery completed Julieta [facility] 03/01/2023 09:48:50 Imaging Results None recorded. Procedure Notes None recorded. Medical Equipment None Reported. Allergies Allergen ID Allergen Name Allergen Category Reaction Reaction Severity Criticality Documentation Date Start Date Code Code System Note Provider Name and Address Organization Details Recorded Time 805662 Zithromax medicatio n other Not available Not available 07/26/202319630905 RxNorm low edi ance for medic ation Lona Marily MARCO ANTONIO newell [facility] 4 08:20:31 Medications Name Sig Start Date Stop Date Status Note LastModified by Organization Details LastModified Time amoxicillin 500 mg capsule Take 1 capsule twice a day by oral route for 10 days. 07/25 completed Not Available Not Available Not Available alclometaso ne 0.05 % topical cream APPLY TO AFFECTED AREA ON CHEST TWICE A DAY NEEDED FOR FLARES, DECREASE SYMPTOMS IMPROVE 07/25 completed Not Available Not Available Not Available tacrolimus 0.1 % topical ointment APPLY TO CHEST AND ABDOMEN TWICE A DAY NEEDED FLARES active Not Available Not Available No t Available polymyxin B sulfate 10,000 unit-trimet hoprim 1 mg/mL eye drops INSTILL 1 DROP INTO AFFECTED EYE(S) BY OPHTHALMI C ROUTE EVERY 6 HOURS 2023 active Not Available Not Available Not Avai lable metronidazo le 0.75 % topical cream APPLY TO FACE TWICE A DAY 07/25 completed Not Available Not Available Not Available levothyroxi ne 112 mcg tablet TAKE 1 TABLET BY MOUTH DAILY FOR 90 DAYS active Not Available Not Available No t Available 03/23 (28) 1 mg-20 mcg (21)/75 mg (7) tablet TAKE 1 TABLET BY MOUTH EVERY DAY active Not Available Not Available No t Available Vitals Date Recorded Body height Body mass index (BMI) Body weight Oxygen saturation Oxygen saturation in Arterial blood by Pulse oximetry Pain severity - 0-10 verbal numeric rating [Score] - Reported Heart rate Respiratory rate Body temperature Systolic And Diastolic Provider Name and Address Organization Details Last Updated DateTime 4 172.72 cm 29.5 kg/m2 08793.9 2 g 97 % 97 % 0 78 /min 18 /min 98.9 [degF] 134/90 mm[Hg] Lona Calixto PA - [facility] 4 08:19:54 Date Recorded Body height Body mass index (BMI) Body weight Body temperature Pain severity - 0-10 verbal numeric rating [Score] - Reported Respiratory rate Oxygen saturation Oxygen saturation in Arterial blood by Pulse oximetry Heart rate Systolic And Diastolic Provider Name and Address Organization Details Last Updated DateTime 3 172.72 cm 30.4 kg/m2 85590.4 7 g 99.1 [degF] 0 18 /min 97 % 97 % 86 /min 137/85 mm[Hg] Julietanba Ferrell PA - [facility] 3 09:50:25 Social History Question Answer Notes LastModified by [employer] Details LastModified Time Tobacco Smoking Status Former Smoker Lona Calixto osiris [place] - [facility] 07/26/2023 08:21:21 Have You Had A Flu Shot This Season? Yes Information not available 03/01/2023 If No, Would You Like A Flu Shot Today? No Information not available 03/01/2023 Have You Had Direct Contact, Or Contact During Intimacy, With Monkeypox Rash, Scabs, Or Body Fluids From A Person With Monkeypox? No Information not available 03/01/2023 What Was The Date Of Your Most Recent Tobacco Screening? 07/26/2023 [email or web address] Information not available 07/26/2023 Have You Recently Traveled Abroad? No Information not available 03/01/2023 Sex: Unknown Functional Status Question Answer Note LastModified by [employer] Details LastModified Time Do you use any illicit or recreational drugs? No Information not available 03/01/2023 Do you or have you ever used any other forms of tobacco or nicotine? No Information not available 03/01/2023 What is your level of alcohol consumption? Occasional Information not available 03/01/2023 Mental Status None recorded. Family History Relationship Description Onset Age of this Age Resolved Age Notes LastModified by Organization Details LastModified Time Mother Diabetes mellitus Not available 2022 09:47:42 Mother Hypertensive disorder Not available 2022 09:47:54 Father Hypertensive disorder Not available 2022 09:47:58 Father Family history of stroke Not available 2022 09:48:07 Medical History No medical history recorded. Gynecological HistoryNo gynecological history recorded. Obstetrics History GPAL:G 0 P 0 0 0 0 Immunizations Vaccine Type Date Status Note Provider Nam e and Address Organization Details Recorded Time COVID-19, mRNA, LNP-S, PF, 100 mcg/0.5mL dose or 50 mcg/0.25mL dose 03/09/2020 completed Julieta Mariaelena null, PA - [facility] 03/01/2023 09:45:41 COVID-19, mRNA, LNP-S, PF, 100 mcg/0.5mL dose or 50 mcg/0.25mL dose 04/06/2020 completed Julieta Mariaelena null, PA - [facility] 03/01/2023 09:45:41 COVID-19, mRNA, LNP-S, PF, 100 mcg/0.5mL dose or 50 mcg/0.25mL dose 01/03/2021 completed Julieta Mariaelena null, PA - [facility] 03/01/2023 09:45:41 COVID-19, mRNA, LNP-S, PF, mary-sucrose, 30 mcg/0.3 mL 01/16/2023 completed Julieta Mariaelena null, PA - [facility] 03/01/2023 09:45:41 Tdap 12/15/2014 completed Julieta Mariaelena null, PA - [facility] 03/01/2023 09:45:41 varicella 03/20/2016 completed Julieta Mariaelena null, PA - [facility] 03/01/2023 09:45:41 Hep B, adolescent or pediatric 01/09/2017 completed Julieta Mariaelena null, PA - [facility] 03/01/2023 09:45:41 Influenza, split virus, quadrivalent, PF 12/18/2017 completed Julieta Ferrell null, PA - [facility] 03/01/2023 09:45:41 Influenza, split virus, quadrivalent, PF 12/20/2022 completed Julieta Ferrell null, PA - [facility] 03/01/2023 09:45:41 Influenza, split virus, quadrivalent, PF 01/03/2021 completed Julieta Ferrell null, PA - [facility] 03/01/2023 09:45:41 Past Encounters Encounter ID Performer Location Encounter Start Date Encounter Closed Date Diagnosis/Indication Diagnosis SNOMED-CT Code Diagnosis ICD10 Code Diagnosis IMO Codes Diagnosis Note [id number] [facility] [address] 05/21/2016 19:03:03 05/21/2016 19:44:32 [id number] [address] [place] [address] 12/23/2017 11:55:23 12/23/2017 14:10:33 [id number] [address] [facility] [address] 02/14/2015 18:24:08 02/14/2015 18:49:31 [id number] [address] [facility] [address] 12/25/2014 12:52:55 12/25/2014 13:42:02 [id number] [address] [facility] [address] 10/01/2021 08:04:30 10/01/2021 08:28:16 [id number] [address] [facility] [address] 12/24/2015 08:55:02 12/24/2015 09:30:00 [id number] [address] [address] [facility] [place] [address] 03/18/2018 17:44:14 03/18/2018 18:35:21 [id number] MARCO ANTONIO MAR[facility] [address] [facility] [place] [address] 03/01/2023 08:54:09 03/01/2023 10:36:55 Sore throat 787463372 J02.9 Acute pharyngitis 470155 003 J02.9 [id number] Mary Carmen More MD [address] [facility] [place] [address] 07/26/2023 08:04:50 07/26/2023 08:48:19 Acute conjunctivitis of right eye 1747744012 57220 H10.31 Sore throat 575657769 J0 2.9 Health Concerns Section Related Observation LastModified by Organization Detai ls LastModified Time None Recorded Concern Status LastModified by Organization Details LastModified Time None Recorded Advance Directives Directive None Recorded Payers Insurance Date Sequence Insurance Name Policy Number Policy Meier Covered Member ID Meier Member ID Guarantor Name 07/26/[address] [place] [address]) [id number] Shahnaz Riggs [id number] Shahnaz Riggs Notes Date Note Type Note Provider Name and Address Organization Details Recorded Time 03/01/2023 text/html Sore throatRepor rodney by Jamytqw7 yo female presents with cough and sore throat x 2 days. Pt denies fever, chest pain or SOB MARCO ANTONIO MARTE [address] [place], [address], [place] - [facility] 03/01/2023 11:49:17 07/26/2023 text/html Eye problemsRepo rted by PatientHPIFor eye symptoms, patient reportsrednessbut reportsno sensitivity to light,no discharge of pus from the eyes, andno blurred vision(irritation right eye with watery drainage. no foreign body sensation. no eye trauma. no contact lens use. no chemical exposure.). For source of patient information, patient reportsinformation obtained from patientandpatient arrived at urgent care ambulatory. For location, patient reportsright. For severity, patient reportsmoderate. For onset/timing, patient [id number]. For context, patient reportsallergies. For modifying factors, patient reportsnothing gives relief. For garcia aggravating factors, (none.). For garcia alleviating factors, (none.).43 year old female with hx of seasonal allergies presenting for evaluation of right eye redness, irritation, watery drainage and eyelid swelling for one day. She has been taking Kate and using Patanol allergy eye drops without improvement. She has had some nasal congestion, a runny nose, post nasal drip, dry cough and sore throat for 4 days. No fever, chills, headache, rash, stiff neck, chest pain, shortness of breath, GI symptoms or body aches. Her neck glands are mildly swollen and painful. No photophobia, contact lens use, eye trauma, blurry vision, chemical exposure. Mary Carmen More MD [address] [place], [address], [place] - [facility] 07/30/2023 07:47:54 OBGyn Episode No OBEpisode recorded.
--- OUTSIDE RECORDS SUMMARY | 2025-01-21 04:26 | XMS_ITS | Data Portability ---
Author Organization [place] - [facility], Allergy Address [address] [address] Care Team Providers Care Pool Attendant Name Role Phone SACHI RIVER Primary Care Provider [phone] Assessment Encounter Date Assessment Date Assessment LastModified [...] Modified Time Details Appointments None recorded. Lab None recorded. Referral None recorded. Procedures None recorded. Surgeries septoplast y and turbinate reduction (SURG) 2024 025 [email or web address] Not available 12:31:[address], sinuses, w/o contrast 2024 025 [email or web address] [facility], [address] [place] [address], [address], 15:58:24 Medication Orders Flonase Allergy Relief 50 mcg/actuat ion nasal spray,susp ension 2024 025 [facility][id number], [address] [place], [address], 14:34:43 Patient TargetsNo targets recorded. Patient InstructionsNo instructions recorded. Reason for Referral None Reported. Results Created Date Observation Date Name Description Value Unit Range Abnormal Flag Note LastModifiedBy Organization Detail LastModifiedTime 09/18/1909/15/2024 CT, sinus es, w/o contr ast No observ ation record ed. [facility] [address] [place], [address], 10/19/2024 10:35:18 Result Notes None recorded. Problems Name Problem SNOMED Code Status Onset Date Resolution Date Notes Provider Name and Address Organization Details Recorded Time Deviated nasal septum 651352285 Active 2024 SRINIVASAN DE LUNA MD [address] [place] [address], [phone], [facility] - [facility] 14:33:48 Hypertrophy of nasal turbinates 36426440 Active 2024 SRINIVASAN DE LUNA MD [address] [place] [address], [phone], [facility] - [facility] 5 11:53:18 Problem Notes None recorded. Procedures Surgical History Date Name Laterality Status Provider Name and Address Organization Details Recorded Time NasalEndoscopy_ DP completed MARCO ANTONIO MAKI [address] [place] [address], [phone], [facility] 12/15/2024 21:39:31 SEPTOPLASTY AND TURBINATE REDUCTION (SURG) completed Ethan Alston [facility] 12/11/2024 08:31:36 nasal septoplasty completed SRINIVASAN DE LUNA MD [address] [place] [address], [place], [phone], [facility] - [facility] 12/08/2024 13:55:14 Imaging Results None recorded. [...] and Address Organization Details Last Updated DateTime 08/03/2024 172.72 cm 30.4 kg/m2 21744.47 g Naomi Griffin [place] - [facility] 08/03/2024 14:24:04 Date Recorded Body height Provider Name an d Address Organization Details Last Updated DateTime 10/09/2024 172.72 cm Naomi Griffin [place] - [facility] 10/09/2024 16:02:38 Date Recorded Body height Body mass index (BMI) Body weight Provider Name and Address Organization Details Last Updated DateTime 12/15/2024 172.72 cm 30.4 kg/m2 14260.47 g Jessica Keegan [place] - [facility] 12/15/2024 14:25:34 Date Recorded Body height Body mass index (BMI) Body weight Provider Name and Address Organization Details Last Updated DateTime 01/08/2025 173.99 cm 26.5 kg/m2 54917.85 g Naomi Griffin [place] - [facility] 01/08/2025 15:16:01 Social History Question Answer Notes LastModified by Organizat ion Details LastModified Time Tobacco Smoking Status Former Smoker SRINIVASAN DE LUNA MD [address] [place] [address], [phone], [place] - [facility] 08/03/2024 14:25:24 How Many Years Have You Consumed Alcohol? 20 [email or web address] Information not available 12/15/2024 What Type Of Taker Off Do You Use? None [email or web address] Information not available 12/15/2024 How Many Alcoholic Drinks Do You Consume Per Day On Average? 0 [email or web address] Information not available 12/15/2024 When Did You Quit Smoking? 16+yearssinc elastcigaret te [email or web address] Information not available 12/15/2024 Do You Have Any Pets? Yes [email or web address] Information not available 12/15/2024 At What Age Did You Start Smoking Tobacco? 12 Information not available 12/15/2024 Are You Passively Exposed To Smoke? No [email or web address] Information not available 12/15/2024 Are There Any Smokers In Your House? No [email or web address] Information not available 12/15/2024 How Much Tobacco Do You Smoke? 1 PPD [email or web address] Information not available 12/15/2024 How Many Years Have You Smoked Tobacco? 14 [email or web address] Information not available 12/15/2024 Sex: Unknown Functional Status Question Answer Note LastModified by Organizat ion Details LastModified Time Do you use any illicit or recreational drugs? No [email or web address] Information not available 12/15/2024 Do you or have you ever used any other forms of tobacco or nicotine? No [email or web address] Information not available 12/15/2024 What is your level of alcohol consumption? Occasional Information not available 12/15/2024 Mental Status None recorded. Family History Nothing Reported. Medical History Condition Response Allergies/Hayfever Y Heart Problems N Anxiety N Tonsil Infections N Emphysema N Migraines N Thyroid Problems Y COPD N Depression N Developmental Delay N Glaucoma N Nasal or Sinus Problems Y Anemia N Immune System Disorder Y Anesthesia Complications Y Heart Attack (ID) N Other Skin Condition Y Diabetes N [...] ICD10 Code Diagnosis IMO Codes Diagnosis Note [id number] SRINIVASAN DE LUNA MD [facility] [address] [address] 08/03/2024 14:13:14 08/03/2024 14:36:48 Deviated nasal septum 269640177 J34.2 819014 There is a leftward deviated septum with spur impinging on the inferior turbinate. There is very small amount of airflow on that side. There is clear airflow on the right. There is some dry crusting at the head of the middle turbinate on the right but the rest of the nasal cavity is patent. I am not sure what to make of the blockage she develops on the right side at night, probably related to turbinate hypertroph y. She stopped nasal decongesta nt a month ago there may still be some rebound effects on board. I recommende d saline, fluticason e, Breathe Right strips. If no improvemen t, we will proceed with CT. We discussed that she would be a candidate for septoplast y which will primarily improve left-sided airflow. [id number] SRINIVASAN DE LUNA MD [facility] on [address] [facility] [place], [place] [address] 10/09/2024 15:57:41 10/12/2024 12:36:15 Deviated nasal septum 619695943 J34.2 711340 There is a leftward deviated septum with spur impinging on the inferior turbinate. CT no sinus obstructio n though some mucosal thickening noted. Patient has a curvature of the nasal septum along with hypertroph y of the inferior turbinates with symptomati c limitation of airflow. Discussed previous attempts at medical management which have not been successful . They would now like to proceed with surgical interventi on with a septoplast y and bilateral inferior turbinate reduction under general anesthesia . The surgical risks of these procedures include, though not limited to, loss of smell and taste, bleeding, incomplete relief of nasal obstructio n, atrophic rhinitis, tooth or lip numbness, infection and the risk of septal perforatio n with its resultant whistling were discussed. During the surgery splints are often inserted into the nasal passage to help the healing process. The splints will remain in place until the first postoperat berhane visit when they will be removed in the office. The splints are a soft clear silicone material that have tubes to allow airflow. All questions were answered and patient/gu ardian fully understand s the risks, benefits and alternativ es as well as the limitation of surgery. This will be scheduled at a mutually convenient time in the near future. Hypertroph y of nasal turbinates 77493204 J34.3 [id number] [id number] MARCO ANTONIO MAKI [facility] [address] [address] 12/15/2024 14:08:24 12/15/2024 14:42:16 Deviated nasal septum 624089723 J34.2 441746 Hypertroph y of nasal turbinates 67206468 J34.3 995374 [id number] SRINIVASAN DE LUNA MD [facility] [address] [place] [address] 01/08/2025 15:12:39 01/11/2025 16:29:52 Deviated nasal septum 437474589 J34.2 087809 She is healing well. There is residual [...] Member ID Meier Member ID Guarantor Name 01/20/2025 1 [facility] [id number] Shahnaz Riggs [id number] Shahnaz Riggs Notes Date Note Type Note Provider Name and Address Organization Details Recorded Time 08/03/2024 text/html ROS as noted in the HPI 44 yo F presents for evaluationHas deviated septumDoes not feel that the nose drains wellSome post nasal dripFeels a scab in the back of the throat, has not happened in awhileUses zicam, not in a month, started in DecemberAllergy meds makes her hungry and dry and did not seem to helpHas seasonal allergiesUsed to get sinus infections Usually breathes better on the right during the day but this worsens at night SRINIVASAN DE LUNA MD [address] [place] [address], [phone], [facility] - [facility] 08/03/2024 14:39:57 10/09/2024 text/html We reviewed the CT. No sinus obstruction. There is confirmation of the septal deviation. Still feels some breathing obstruction. SRINIVASAN DE LUNA MD [address] [place] [address],[address], [address], [facility] - [facility] 10/12/2024 11:54:52 12/15/2024 text/html ROS as noted in the [...] of smell is intact. MIGUEL ZAMARRIPA MD [address] [facility],[address], [address], [facility] - [facility] 12/16/2024 12:43:27 01/08/2025 text/html ROS as noted in the HPI 44 year old female, presents for follow up. Has been using flonase for allergies. Improved nasal airflow but still feels a little narrow anteriorly. SRINIVASAN DE LUNA MD [address] [facility],[place] [address], [place], [address], [facility] - [facility] 01/08/2025 16:46:09 OBGyn Episode No OBEpisode recorded.
== END 2025-01-20 16:28 | disposition home or self-care (01) ==
LOC: HO.HMCH 15:49
PROVIDERS: PCP Internal Medicine; Visit Provider Internal Medicine
DX: Z00.00 Encounter for general adult medical examination without abnormal findings (principal); E03.9 Hypothyroidism, unspecified; E04.2 Nontoxic multinodular goiter; K21.9 Gastro-esophageal reflux disease without esophagitis; Z87.19 Personal history of other diseases of the digestive system; E55.9 Vitamin D deficiency, unspecified; J34.2 Deviated nasal septum; E66.9 Obesity, unspecified; Z12.4 Encounter for screening for malignant neoplasm of cervix; Z68.26 Body mass index [BMI] 26.0-26.9, adult

== ENCOUNTER → 2025-01-20 15:49 | Outpatient (BNVA) | payer OTHER, SELFPAY | PROVIDERS: PCP Internal Medicine; Visit Provider Internal Medicine | DX: Z00.00 Encounter for general adult medical examination without abnormal findings (principal); Z12.4 Encounter for screening for malignant neoplasm of cervix; E03.9 Hypothyroidism, unspecified; E04.2 Nontoxic multinodular goiter; K21.9 Gastro-esophageal reflux disease without esophagitis; E55.9 Vitamin D deficiency, unspecified; J34.2 Deviated nasal septum; E66.9 Obesity, unspecified; Z87.19 Personal history of other diseases of the digestive system; Z68.26 Body mass index [BMI] 26.0-26.9, adult | CPT/HCPCS: 96127 ==